=== PATIENT | male | born 1985 | race Caucasian/White ===

== ENCOUNTER 2019-06-27 08:39 | Inpatient (IN) | payer BC ==
[~2019-06-27] VITALS: Ht 190.5 cm; Wt 85.6 kg
[2019-06-27 09:12] LABS: BASOPHIL % 0 % (0-2); PLATELET COUNT 222 x10^3mcL (130-400); RED CELL DISTRIBUTION WIDTH 17.2 % (11.5-14.5)
[2019-06-27 09:23] LABS: BILIRUBIN TOTAL 0.28 mg/dL (0.20-1.00); CALCIUM 12.9 mg/dL (8.5-10.1); CARBON DIOXIDE 36.3 mmol/L (21-32); CREATININE SERUM 1.9 mg/dL (0.7-1.3); POTASSIUM SERUM 4.1 mmol/L (3.5-5.1)
[2019-06-27 09:25] LABS: TOTAL PROTEIN, SERUM 8.6 g/dL (6.4-8.2)
[2019-06-27 10:26] LABS: microscopic required? YES; urine erythrocyte 2+ (NEGATIVE)
[2019-06-27] MEDS ORDERED: AMANTADINE HCL100 M1 GT (12:10)
[2019-06-27] MEDS ORDERED: VITAMIN-D1000 IU GT (12:11)
[2019-06-27] MEDS ORDERED: PURE GT (12:12)
[2019-06-27] MEDS ORDERED: [UNRECOGNIZED DRUG - OTHER] GT (12:12)
[2019-06-27] MEDS ORDERED: DDAVP0.1 MG GT (12:13)
[2019-06-27] MEDS ORDERED: [UNRECOGNIZED DRUG - OTHER] GT (12:15)
[2019-06-27] MEDS ORDERED: LOVAZA1 G1 GT (12:16)
[2019-06-27] MEDS ORDERED: OMEPRAZOLE40 M1 GT (12:17)
[2019-06-27] MEDS ORDERED: HEPARIN 51 UNIT/1 M SQ (12:18)
[2019-06-27] MEDS ORDERED: PROCTOCREAM-HC2.5% GT (12:20)
[2019-06-27] MEDS ORDERED: TYL650S GT (12:23)
[2019-06-27 13:48] VITALS: BP 101/70
[2019-06-27 13:57] LABS: MAGNESIUM 2.7 mg/dL (1.8-2.4); PHOSPHOROUS 4.2 mg/dL (2.5-4.9)
[2019-06-27 16:32] VITALS: BP 93/60
[2019-06-27 20:35] VITALS: BP 100/62
[2019-06-28] VITALS (12 sets, daily range): BP systolic 89–114; BP diastolic 49–85
[2019-06-28 06:15] LABS: BASOPHIL % 0.1 % (0-2); PLATELET COUNT 202 x10^3mcL (130-400)
[2019-06-28 06:52] LABS: CALCIUM 11.9 mg/dL (8.5-10.1); CARBON DIOXIDE 33.3 mmol/L (21-32); POTASSIUM SERUM 3.9 mmol/L (3.5-5.1)
[2019-06-29] VITALS (17 sets, daily range): BP systolic 95–133; BP diastolic 57–91
[2019-06-29 05:20] LABS: BASOPHIL % 0.2 % (0-2); PLATELET COUNT 191 x10^3mcL (130-400)
[2019-06-29 05:23] LABS: CALCIUM 12.1 mg/dL (8.5-10.1); CARBON DIOXIDE 35.2 mmol/L (21-32); CREATININE SERUM 2.1 mg/dL (0.7-1.3); POTASSIUM SERUM 3.9 mmol/L (3.5-5.1)
[2019-06-29 05:24] LABS: RED CELL DISTRIBUTION WIDTH 16.3 % (11.5-14.5)
[2019-06-29 20:34] LABS: BILIRUBIN TOTAL 0.33 mg/dL (0.20-1.00); CALCIUM 11.9 mg/dL (8.5-10.1); CARBON DIOXIDE 34.5 mmol/L (21-32); CREATININE SERUM 2.4 mg/dL (0.7-1.3); POTASSIUM SERUM 3.5 mmol/L (3.5-5.1); TOTAL PROTEIN, SERUM 7.1 g/dL (6.4-8.2)
[2019-06-29 20:36] LABS: ALBUMIN 2.3 g/dL (3.4-5.0)
[2019-06-30] VITALS (18 sets, daily range): BP systolic 87–119; BP diastolic 60–81
[2019-06-30 08:59] LABS: CALCIUM 11.6 mg/dL (8.5-10.1); CARBON DIOXIDE 32.4 mmol/L (21-32); CREATININE SERUM 2.1 mg/dL (0.7-1.3); POTASSIUM SERUM 3.8 mmol/L (3.5-5.1)
[2019-06-30 09:09] LABS: BASOPHIL % 0.2 % (0-2); PLATELET COUNT 197 x10^3mcL (130-400)
[2019-06-30 09:11] LABS: RED CELL DISTRIBUTION WIDTH 16.2 % (11.5-14.5)
[2019-07-01] VITALS (18 sets, daily range): BP systolic 106–129; BP diastolic 59–80
[2019-07-01 05:36] LABS: BASOPHIL % 0.4 % (0-2); PLATELET COUNT 177 x10^3mcL (130-400)
[2019-07-01 05:41] LABS: RED CELL DISTRIBUTION WIDTH 16.1 % (11.5-14.5)
[2019-07-01 05:48] LABS: CALCIUM 10.7 mg/dL (8.5-10.1); CARBON DIOXIDE 32.7 mmol/L (21-32); CREATININE SERUM 1.9 mg/dL (0.7-1.3); MAGNESIUM 1.8 mg/dL (1.8-2.4); PHOSPHOROUS 4.3 mg/dL (2.5-4.9); POTASSIUM SERUM 3.7 mmol/L (3.5-5.1)
[2019-07-01 18:19] LABS: CALCIUM 10.2 mg/dL (8.5-10.1); CREATININE SERUM 1.8 mg/dL (0.7-1.3); POTASSIUM SERUM 3.6 mmol/L (3.5-5.1)
[2019-07-02] VITALS (10 sets, daily range): BP systolic 111–131; BP diastolic 64–88; Ht 190.5 cm; Wt 85.6 kg
[2019-07-02 07:54] LABS: BASOPHIL % 0.3 % (0-2); PLATELET COUNT 197 x10^3mcL (130-400)
[2019-07-02 07:57] LABS: RED CELL DISTRIBUTION WIDTH 15.5 % (11.5-14.5)
[2019-07-02 08:07] LABS: CALCIUM 10.5 mg/dL (8.5-10.1); CARBON DIOXIDE 30.4 mmol/L (21-32); CREATININE SERUM 1.8 mg/dL (0.7-1.3); POTASSIUM SERUM 3.9 mmol/L (3.5-5.1)
[2019-07-03] VITALS (12 sets, daily range): BP systolic 103–121; BP diastolic 62–86
[2019-07-03 05:39] LABS: BASOPHIL % 0.3 % (0-2); PLATELET COUNT 204 x10^3mcL (130-400)
[2019-07-03 05:45] LABS: RED CELL DISTRIBUTION WIDTH 15.2 % (11.5-14.5)
[2019-07-03 05:47] LABS: CALCIUM 10.1 mg/dL (8.5-10.1); CARBON DIOXIDE 29.2 mmol/L (21-32); CREATININE SERUM 1.7 mg/dL (0.7-1.3); MAGNESIUM 1.8 mg/dL (1.8-2.4); PHOSPHOROUS 3.3 mg/dL (2.5-4.9); POTASSIUM SERUM 3.3 mmol/L (3.5-5.1)
[2019-07-04 05:39] VITALS: BP 132/70
[2019-07-04 07:27] LABS: CALCIUM 10.3 mg/dL (8.5-10.1); CARBON DIOXIDE 27.8 mmol/L (21-32); CREATININE SERUM 1.5 mg/dL (0.7-1.3); POTASSIUM SERUM 3.5 mmol/L (3.5-5.1)
[2019-07-04 08:52] VITALS: BP 138/89
[2019-07-04 13:40] LABS: BASOPHIL % 0.5 % (0-2); PLATELET COUNT 186 x10^3mcL (130-400)
[2019-07-04 13:41] LABS: RED CELL DISTRIBUTION WIDTH 14.9 % (11.5-14.5)
[2019-07-04 13:52] VITALS: BP 140/84
[2019-07-04 15:25] VITALS: BP 140/84
[2019-07-04 18:03] VITALS: BP 124/77
[2019-07-04 20:34] VITALS: BP 126/76
[2019-07-05 05:28] VITALS: BP 135/82
[2019-07-05 06:33] LABS: BASOPHIL % 0.1 % (0-2); PLATELET COUNT 216 x10^3mcL (130-400)
[2019-07-05 06:43] LABS: RED CELL DISTRIBUTION WIDTH 14.6 % (11.5-14.5)
[2019-07-05 06:51] LABS: CALCIUM 9.8 mg/dL (8.5-10.1); CARBON DIOXIDE 27.3 mmol/L (21-32); CREATININE SERUM 1.5 mg/dL (0.7-1.3); POTASSIUM SERUM 3.6 mmol/L (3.5-5.1)
[2019-07-05 09:03] VITALS: BP 111/71
[2019-07-05] MEDS ORDERED: LOVAZA1 G1 GT (10:32)
[2019-07-05 13:10] VITALS: BP 114/76
== END 2019-07-05 17:30 | DRG 207 ==
LOC: ED 08:39 → DU 12:12 → IC 12:12 → DU 13:29 → IC 06-28 11:45 → DU 07-03 12:05
PROVIDERS: Internal Medicine; Student in an Organized Health Care Education/Training Program; ADMIT General Practice
PROC: 5A1955Z Respiratory Ventilation, Greater than 96 Consecutive Hours (ICD-10-PCS; principal; 2019-06-27)
DX: J96.21 Acute and chronic respiratory failure with hypoxia (principal); N17.0 Acute kidney failure with tubular necrosis; J69.0 Pneumonitis due to inhalation of food and vomit; J15.1 Pneumonia due to Pseudomonas; E44.1 Mild protein-calorie malnutrition; Z68.1 Body mass index [BMI] 19.9 or less, adult; E87.0 Hyperosmolality and hypernatremia; Z99.11 Dependence on respirator [ventilator] status; G93.49 Other encephalopathy; J96.22 Acute and chronic respiratory failure with hypercapnia; E83.52 Hypercalcemia; F90.9 Attention-deficit hyperactivity disorder, unspecified type; G20 Parkinson's disease; I12.9 Hypertensive chronic kidney disease with stage 1 through stage 4 chronic kidney disease, or unspecified chronic kidney disease; N18.9 Chronic kidney disease, unspecified; E11.22 Type 2 diabetes mellitus with diabetic chronic kidney disease; Z95.0 Presence of cardiac pacemaker; Z88.5 Allergy status to narcotic agent; Z93.0 Tracheostomy status; Z93.1 Gastrostomy status; Z86.718 Personal history of other venous thrombosis and embolism; Z79.01 Long term (current) use of anticoagulants; Z79.899 Other long term (current) drug therapy
CPT/HCPCS: 36600; 82962; A4628; G0378; J0456; J1644; J2543; J2597; J3370; J7030; J7042; J7050; J7613; J7620; J7644; Q0092